=== PATIENT | female | born 1930 ===

== ENCOUNTER 2018-09-08 13:50 | Emergency (ER) | payer OTHER ==
[~2018-09-08] VITALS: Ht 160 cm; Wt 72.6 kg
[2018-09-08] MEDS ORDERED: JANUMET 50-1,01 EACH PO (14:01)
[2018-09-08] MEDS ORDERED: LISINOPRIL-HCT1 EAC1 PO (14:01)
[2018-09-08] MEDS ORDERED: ASA81 MG PO (14:02)
[2018-09-08] MEDS ORDERED: NEURONTIN300 MG PO (14:02)
== END 2018-09-08 16:02 | disposition home or self-care (01) ==
LOC: ER 13:50
DX: M62.830 Muscle spasm of back (principal)